=== PATIENT | male | born 1985 | race Caucasian/White ===

== ENCOUNTER 2020-03-11 09:34 | Day surgery (SDC) | payer BC ==
--- NOTE | 2020-02-25 09:16 | HP ---
DATE OF SURGERY: 03/11/2020 DATE OF ADMISSION: 02/18/2020 BRIEF HISTORY: This is a 34-year-old gentleman who presents to the office with complaints of having 2 soft tissue masses that are causing him discomfort. One is overlying the sternum, and the other is overlying the right biceps. Patient states that lumps have gotten larger and now wished to have these removed. PAST MEDICAL HISTORY: No coronary artery disease, hypertension, or diabetes. PAST SURGICAL HISTORY: Excision of previous lipomas. ALLERGIES: No known drug allergies. MEDICATIONS: None. SOCIAL HISTORY: He is a teacher. He does not smoke. He drinks socially. No history of drug use. PHYSICAL EXAMINATION: Sternum: Patient has a soft tissue mass at the base of the sternum. It is approximately 1.5-2 cm. It is well demarcated and mobile. He has a less descript similar sized lesion overlying the lateral aspect of his biceps on the right arm. IMPRESSION/PLAN: Suspect sternal lipoma and biceps lipoma. Will plan for excision in the operating room. The indications, alternatives, and complications discussed, questions answered. Will plan to obtain written consent the day of surgery. MESREET CENTENO M.D. [id number]
[2020-03-04 10:50] VITALS: BMI 25.8
[2020-03-11] MEDS ORDERED: MIDAZOLAM HCL 2 MG/2 ML SINGLE DOSE VIAL ONE (11:33)
[2020-03-11] MEDS ORDERED: PROPOFOL 20 ML ONE ×2 (11:38)
[2020-03-11] MEDS ORDERED: ONDANSETRON 4 MG/2 ML VIAL ONE (11:41)
[2020-03-11] MEDS ORDERED: ceFAZolin SODIUM 1 GM VIAL ONE (11:41)
[2020-03-11] MEDS ORDERED: LIDOCAINE HCL/PF 2% SDV 5ML VIAL ONE (11:41)
[2020-03-11] MEDS ORDERED: KETOROLAC TROMETHAMINE 30 MG/1 ML VIAL ONE (11:41)
[2020-03-11] MEDS ORDERED: DEXAMETHASONE SOD PHOSPHATE 4 MG/1 ML VIAL ONE (11:41)
[2020-03-11] MEDS ORDERED: LIDOCAINE HCL 1%, 10 MG/ML (20ML VIAL) ONE (11:48)
[2020-03-11] MEDS ORDERED: LIDOCAINE HCL 1%, 10 MG/ML (20ML VIAL) ID ONE (11:55)
[2020-03-11 13:01] VITALS: BP 118/71; PULSE 54; TEMP 98
--- NOTE | 2020-03-12 07:35 | OP ---
DATE OF OPERATION: 03/11/2020 PREOPERATIVE DIAGNOSIS: Soft tissue mass, right upper extremity and over chest. POSTOPERATIVE DIAGNOSIS: Soft tissue mass, right upper extremity and over chest, suspect lipoma. PROCEDURE: Excision of right arm lipoma with 3-cm wound closure, excision of chest lipoma with 3-cm intermediate wound closure. SURGEON: Rory Centeno MD GYM SUPERVISOR: None. ANESTHESIOLOGIST: CHARLA Noonan (local/1% lidocaine without epinephrine, approximately a total of 7 mL). ESTIMATED BLOOD LOSS: Minimal. SPECIMEN: Lipomas. INDICATION FOR PROCEDURE: This is a 34-year-old gentleman with a soft tissue mass on the lateral aspect of his right upper extremity and one overlying his sternum. They cause him discomfort. He wished to have these removed. DESCRIPTION OF PROCEDURE: Patient identified and appropriately positioned on the operating table. After IV sedation, the right upper extremity and chest prepped and draped in usual sterile fashion with ChloraPrep. Next, 1% lidocaine without epinephrine was used for anesthesia, approximately 3 mL. This was done overlying the right arm lipoma first. A 3-cm incision overlying the lipoma was made, deepened through subcutaneous tissue. Lipoma sharply excised, handed off as specimen "right upper extremity lipoma." Hemostasis achieved with cautery as needed. The dermis was reapproximated with interrupted 3-0 Vicryl suture and the skin closed with 4-0 subcuticular Biosyn, followed by Dermabond. Next, 3 mL of lidocaine was used subcutaneously overlying the sternal lipoma. A 3-cm incision overlying the sternal lipoma was made and deepened through the subcutaneous tissue. The lipoma sharply excised. Hemostasis achieved with cautery as needed. The dermis reapproximated with interrupted 3-0 Vicryl suture and the skin closed with 4-0 subcuticular Biosyn, followed by Dermabond. At the conclusion of this case, sponge and needle counts were correct. ATTESTATION: A brief operative note handwritten on the preprinted form. [facility] queried prior to giving narcotics. RORY CENTENO M.D. [id number]
--- NOTE | 2020-03-13 17:24 | PATH ---
Surgical Pathology Report Patient Name: WALLACE FLORES Med. Rec. #: [id number] /Age/Gender: 1985 (Age: 34) / M Account: [id number] Location: [facility], 1928–1983 AMBULATORY Taken: 03/11/2020 Received: 03/11/2020 Reported: 03/13/2020 Physicians: Rory Dunbar Specimen(s) Received A: RIGHT ARM LIPOMA B: STERNAL LIPOMA Clinical History Excision of lipoma, right arm, sternum Final Diagnosis A. ARM LIPOMA , RIGHT, EXCISION: CONSISTENT WITH ANGIOLIPOMA. B. STERNAL LIPOMA, EXCISION: ANGIOLIPOMA. Electronically Signed Meka Gupta M.D. Gross Description A. Received in formalin labeled "right arm lipoma" is a 3 x 1.5 x 0.5 cm, yellow, lobulated adipose tissue. Cut section is yellow and homogenous. No necrosis or hemorrhage identified. Polisher And Buffer sections are submitted in one cassette. B. Received in formalin labeled "sternal lipoma" is 3 irregular fragments of yellow, lobulated adipose tissue measuring 2 x 1 x 0.5 cm, 1.7 x 1.7 x 0.4 cm, and 2 x 1.7 x 0.5 cm. Cut section is yellow and homogenous. No necrosis or hemorrhage identified. Polisher And Buffer sections are submitted in one cassette. MLSZ/03/12/2020 sanml/03/12/2020
== END 2020-03-11 13:05 | disposition home or self-care (01) ==
LOC: FASU 09:34
PROVIDERS: ATTEND Surgery
PROC: 0JB60ZX Excision of Chest Subcutaneous Tissue and Fascia, Open Approach, Diagnostic (ICD-10-PCS; 2020-03-11)
PROC: 0JBD0ZX Excision of Right Upper Arm Subcutaneous Tissue and Fascia, Open Approach, Diagnostic (ICD-10-PCS; 2020-03-11)
PROC: 0JQ60ZZ Repair Chest Subcutaneous Tissue and Fascia, Open Approach (ICD-10-PCS; principal; 2020-03-11 11:50)
DX: D17.1 Benign lipomatous neoplasm of skin and subcutaneous tissue of trunk (principal); D17.21 Benign lipomatous neoplasm of skin and subcutaneous tissue of right arm
CPT/HCPCS: 88304-TC